=== PATIENT | female | born 1970 | race Caucasian/White ===

== ENCOUNTER → 2022-03-11 12:59 | Outpatient (CLI) | payer BC, SELFPAY ==
--- NOTE | ~2022-03-11 | US_ITS ---
US venous doppler LE RT DATE: 03/11/2022 13:26 INDICATION: Right leg swelling. No known injury. History of rheumatoid arthritis. TECHNIQUE: Real-time and color flow imaging and Doppler analysis of the veins of the right lower extr emity COMPARISON: None FINDINGS: There is spontaneous and phasic flow and normal augmentation and color flow signal at the d eep veins of the right lower extremity. The right greater saphenous vein is patent. Approximately 1.6 x 4.6 x 6.7 cm popliteal cyst. IMPRESSION: Popliteal cyst No evidence of deep venous thrombosis of right leg Reviewed, dictated and finalized at [facility]. Reviewed, dictated and finalized at [facility].
== END ==
DX: M71.21 Synovial cyst of popliteal space [Baker], right knee (principal); M79.89 Other specified soft tissue disorders
CPT/HCPCS: 93971